=== PATIENT | male | born 1950 | race Caucasian/White ===

== ENCOUNTER → 2022-01-16 12:15 | Outpatient (CLI) | payer OTHER, SELFPAY ==
--- NOTE | 2022-01-16 | CA_ITS ---
APPROVED REPORT EXAM: Comprehensive 2D, Doppler, and color-flow Echocardiogram Assembly Loader: Nay Alcala CRT Ht: 6 ft 0 in Wt: 257lbs BSA: 2.37 BP: 130/70 mmHg Indications: Shortness of Breath, Diabetes, Obesity, Palpitations, Hyperlipidemia, Hypertension/HDD, stents, smoker 2D Dimensions LVOT 2.08 cm (M/F) 1.5-2.5 LA Volume 34.70 mL LA Volume Index 14.60 mL/m2 (M/F) 16-34 M-Mode Dimensions RVDd 3.82 cm (0.9-2.6) LA Diam 3.41 cm (1.9-4.0) LVDd 4.72 cm (3.5-5.7) Ao Diam 4.46 cm (2.0-3.7) LVDs 2.72 cm (3.5-5.7) IVSd 2.00 cm (0.6-1.1) PWd 1.44 cm (0.6-1.1) EF (Teich) 73.40% FS 42.40% EDV (Teich) 103.40 mL TAPSE 2.15 (<1.7) ESV (Teich) 27.50 mL LV Diastology E Decel Time 350.00 (160-240 msec) E/A Ratio 0.44 MED E' 4.20 (< 7 cm/sec) MED A' 8.40 cm/s E'/MED E' Ratio 10.40 (>14) LAT E' 3.10 (<10 cm/sec) LAT A' 11.80 cm/s E/LAT E' Ratio 14.10 (>14) Aortic Valve AO Peak GR. 8.00 mmHg Mitral Valve MV E Max Juno. 44.00 (40-130 cm/s) MV A Velocity 100.00 (40-130 cm/s) E/A Ratio 0.44 MV Decel. Time 350.00 (160-240 ms) MV PHT 103.00 ms Pulmonary Valve PV Peak Velocity 106.00 (50-150 cm/s) Tricuspid Valve TR P. Velocity 299.00 cm/s RAP Estimate 10.00 mmHg RVSP 45.90 mmHg Left Ventricle Left atrium is mildly enlarged, left ventricle is normal size, mild concentric left ventricular hypertrophy, visually estimated ejection fraction 55% with no regional wall motion abnormality, grade 1 diastolic dysfunction seen without tissue Doppler evidence of raise left atrial pressure. Right Ventricle Right atrium and right ventricle mildly enlarged with normal contractility. Aortic Valve Aortic valve is minimally thickened calcified without aortic stenosis aortic insufficiency. Mitral Valve Mitral valve grossly normal, there is trace mitral regurgitation. Tricuspid Valve Tricuspid grossly normal, there is trace tricuspid regurgitation, tricuspid regurgitation jet velocity is inadequate for calculation of the right ventricular systolic pressure. Pulmonic Valve Pulmonic valve is poorly visualized. Great Vessels Aortic root is normal size. Inferior vena cava is poorly visualized. Pericardium No significant pericardial effusion. Conclusion 1. Mild biatrial enlargement, normal left ventricular size, mild concentric left ventricular hypertrophy, visually estimated ejection fraction 55% with no regional wall motion abnormality, grade 1 diastolic dysfunction seen without tissue Doppler evidence of raise left atrial pressure. 2. Mildly enlarged right ventricle with normal contractility. 3. Trace mitral and tricuspid regurgitation. 4. No significant pericardial effusion. 5. Inferior vena cava is poorly visualized. Electronically signed by : Tr An MD 01/16/2022 19:10:57
== END ==
PROVIDERS: Visit Provider Chiropractor
DX: I25.9 Chronic ischemic heart disease, unspecified (principal)
CPT/HCPCS: 93306